=== PATIENT | female | born 1985 | race Caucasian/White ===

== ENCOUNTER 2018-12-23 12:12 | Inpatient (IN) | payer BC ==
[~2018-12-23] VITALS: Ht 160 cm; Wt 57.8 kg
[2018-12-23] VITALS (7 sets, daily range): BP systolic 124–156; BP diastolic 77–95
--- NOTE | ~2018-12-23 | EKG ---
[place], [place] ELECTROCARDIOGRAM REPORT NAME: BRITTNEY MEJIA UNIT #: [id number] ROOM: 520 DOCTOR: SERVANDO DRAFT REPORT BIRTHDATE: [address] [facility] Test Date: 2018-12-23 Test Time: 15:20:58 Pat Name: BRITTNEY MEJIA Department: Room: 520 Gender: F Glass Polisher: Farhana Christensen : 1985 Requested By: CHINEDU TOSCANO Order Number: [id number] Reading MD: Nicolas Starr MD Measurements Intervals [place] Rate: 140 P: 65 ND: 100 QRS: -32 QRSD: 120 T: 112 QT: 307 QTc: 469 Interpretive Statements Sinus tachycardia LVH with secondary repolarization abnormality Anterior infarct, acute (LAD) No previous ECG for comparison Electronically Signed On 12-23-2018 22:11:18 PST by Nicolas Starr MD CM:EKGRPT:ELECTROCARDIOGRAM REPORT [id number] CHINEDU TOSCANO EPIPHANY DRAFT REPORT CHINEDU TOSCANO
--- NOTE | ~2018-12-23 | EKG ---
[place], [place] ELECTROCARDIOGRAM REPORT NAME: BRITTNEY MEJIA UNIT #: [id number] ROOM: 520 DOCTOR: SERVANDO DRAFT REPORT BIRTHDATE: [birth year] [facility] Test Date: 2018-12-25 Test Time: 08:27:29 Pat Name: BRITTNEY MEJIA Department: Room: 520 1 Gender: F Vascular Technician: Farhana Collins : 1985 Requested By: ADRIENNE TOSCANO Order Number: [id number] Reading MD: Nicolas Starr MD Measurements Intervals [place] Rate: 84 P: 40 VT: 136 QRS: -2 QRSD: 79 T: 45 QT: 353 QTc: 418 Interpretive Statements Sinus rhythm Anterior infarct, old Compared to ECG 12/23/2018 16:09:00 Sinus tachycardia no longer present ST (T wave) deviation no longer present Myocardial infarct finding still present Electronically Signed On 12-25-2018 7:24:07 PST by Nicolas Starr MD CM:EKGRPT:ELECTROCARDIOGRAM REPORT ADRIENNE TOSCANO EPIPHANY DRAFT REPORT ADRIENNE TOSCANO
--- NOTE | ~2018-12-23 | EKG ---
[place], [place] ELECTROCARDIOGRAM REPORT NAME: BRITTNEY MEJIA UNIT #: [id number] ROOM: 520 DOCTOR: SERVANDO DRAFT REPORT BIRTHDATE: [birth year] [facility] Test Date: 2018-12-23 Test Time: 16:09:00 Pat Name: BRITTNEY MEJIA Department: Room: 520 Gender: F Oracle Sql Developer: Farhana Christensen : 1985 Requested By: CHINEDU TOSCANO Order Number: [id number] Reading MD: Nicolas Starr MD Measurements Intervals [place] Rate: 124 P: 62 AK: 133 QRS: 28 QRSD: 89 T: 77 QT: 318 QTc: 457 Interpretive Statements Sinus tachycardia Anterior infarct, old Compared to earlier ECG this date Anterior ST elevation no longer present Interventricular conduction delay is no longer present Electronically Signed On 12-23-2018 22:12:47 PST by Nicolas Starr MD CM:EKGRPT:ELECTROCARDIOGRAM REPORT [id number] CHINEDU TOSCANO EPIPHANY DRAFT REPORT CHINEDU TOSCANO
[~2018-12-23 12:12] MED LIST: ALPRAZOLAM0.5 M3 PO; MOTRIN 800 MG E4 TAB PO; NAPROSYN500 MG PO; PRENATAL1 TA1 PO; ULTRAM 50 MG ED2 TAB PO; ZITHROMAX250 MG PO; ZOFRAN4 MG PO
--- NOTE | 2018-12-23 12:42 | NUR ---
NOTIFIED BY LAB PT POSITIVE FOR FLU-A.MARCOS PLUNGER SCOOP OPERATOR NOTIFIED.
[2018-12-23 12:57] LABS: BASO % 0.3 % (0.0-1.0); EOS % 0.5 % (1.0-4.0); HEMATOCRIT 44.9 % (37.0-47.0); HEMOGLOBIN 14.6 g/dl (12.0-16.0); LYMPH # 0.4 10*3/uL (1.3-4.4); LYMPH % 7.1 % (27.0-41.0); MEAN CELL VOLUME 82.4 fl (81.0-99.0); MEAN CORPUSCULAR HGB 26.8 pg (27.0-31.0); MEAN CORPUSCULAR HGB CONC 32.5 g/dl (33.0-37.0); MONO # 0.8 10*3/uL (0.1-1.0); MONO % 12.8 % (3.0-9.0); NEUT # 4.9 10*3/uL (2.3-7.9); NEUT % 78.7 % (47.0-73.0); PLATELET COUNT AUTOMATED 259 10*3/uL (130-400); RED BLOOD COUNT 5.45 10*6/uL (4.10-5.10); RED CELL DISTRI WIDTH 13.5 % (0-14.5); WHITE BLOOD COUNT 6.2 10*3/uL (4.8-10.8)
--- NOTE | 2018-12-23 13:03 | NUR ---
NOTIFIED BY LAB PTS LACTIC ACID 2.7.MARCOS TINOCO NOTIFIED.
[2018-12-23 13:12] LABS: ALBUMIN 4.2 gm/dl (3.1-4.5); ALKALINE PHOSPHATASE 108 U/L (45-117); BUN 9 mg/dl (7-24); CHLORIDE 102 mmol/L (98-107); CREATININE 0.96 mg/dL (0.55-1.02); POTASSIUM 3.7 mmol/L (3.5-5.1); SGOT/AST 19 IU/L (3-35); SGPT/ALT 30 U/L (12-78); SODIUM 135 mmol/L (136-145); TOTAL PROTEIN 8.7 gm/dL (6.4-8.2)
--- NOTE | 2018-12-23 15:13 | NUR ---
LAB NOTIFIED US LACRIC ACID 2.3. MARCOS HISTOPATHOLOGY TECHNICIAN NOTIFIED.
[2018-12-23] MEDS ORDERED: IMITREX25 M1 PO (15:22)
--- NOTE | 2018-12-23 16:40 | NUR ---
A 33yr old female, admitted to , under the services of YAZ Rojas DO with a diagnosis of Influenza A, severe sepsis and pneumonitis. Chief complaint is chest pain, hoarse cough, chills. Patient arrived via stretcher from ER. Monitor applied. Initial assessment completed. Vital signs taken and recorded. See assessment for past medical history, medications and allergies. Patient and/or family oriented to unit. [facility] visitation policy reviewed. Clothing/patient valuable form completed. HALLIE KANG L
--- NOTE | 2018-12-23 20:46 | NUR ---
24 HR chart check completed.
--- NOTE | 2018-12-23 21:00 | NUR ---
VISITING WITH FAMILY. RESPIRATIONS EASY. LUNGS CLEAR. HARSH NON-PRODUCTIVE COUGH NOTED. OFFERED AND EDUCATED REGARDING TEDS, DECLINED. IV FLUIDS INFUSING PER ORDER. CALL LIGHT WITHIN REACH. NO VOICED COMPLAINTS
--- NOTE | 2018-12-23 22:43 | NUR ---
REQUESTED AND RECEIVED TYLENOL PER PRN ORDER FOR COMPLAINTS OF HEADACHE RATING A 5. ALSO MEDICATED WITH XANAX TO ASSIST WITH ANXIETY. CALL LIGHT WITHIN REACH. WILL MONITOR FOR EFFECTIVENESS
[2018-12-24] VITALS: BP 130/84
--- NOTE | 2018-12-24 | NUR ---
REMAINS AWAKE. CALM. RESPIRATIONS EASY. CALL LIGHT WITHIN REACH.
--- NOTE | 2018-12-24 01:08 | NUR ---
REQUESTED AND RECEIVED TORAOL PER PRN ORDER FOR COMPLAINTS OF HEADACHE RATING A 5. CALL LIGHT WITHIN REACH. WILL MONITOR FOR EFECTIVENESS
--- NOTE | 2018-12-24 06:00 | NUR ---
RESTED THROUGHOUT NIGHT WITH NO ACUTE DISTRESS NOTED. RESPIRATIONS EASY. HR 90'S WHILE SLEEPING. IV FLUIDS INFUSING PER ORDER. CALL LIGHT WITHIN REACH. NO VOICED COMPLAINTS
[2018-12-24 07:07] LABS: MEAN CELL VOLUME 83.4 fl (81.0-99.0); MEAN CORPUSCULAR HGB 26.7 pg (27.0-31.0); MEAN PLATELET VOLUME 10.4 fl (9.6-12.3); PLATELET COUNT AUTOMATED 205 10*3/uL (130-400); RED BLOOD COUNT 4.39 10*6/uL (4.10-5.10); RED CELL DISTRI WIDTH 13.6 % (0-14.5); WHITE BLOOD COUNT 3.5 10*3/uL (4.8-10.8)
[2018-12-24 07:08] LABS: HEMATOCRIT 36.6 % (37.0-47.0); HEMOGLOBIN 11.7 g/dl (12.0-16.0)
[2018-12-24 07:34] LABS: ALBUMIN 3.1 gm/dl (3.1-4.5); BUN 8 mg/dl (7-24); CHLORIDE 109 mmol/L (98-107); CHOLESTEROL 135 mg/dL (<200); CREATININE 0.74 mg/dL (0.55-1.02); PHOSPHOROUS 3.1 mg/dL (2.5-4.9); POTASSIUM 3.8 mmol/L (3.5-5.1); SGOT/AST 17 IU/L (3-35); SGPT/ALT 24 U/L (12-78); SODIUM 141 mmol/L (136-145); TOTAL PROTEIN 6.6 gm/dL (6.4-8.2)
[2018-12-24 07:41] LABS: ALKALINE PHOSPHATASE 77 U/L (45-117); FREE T4 0.83 ng/dl (0.76-1.46); HDL CHOLESTEROL 49 mg/dl (40-60); LDL CHOLESTEROL 74 mg/dL (9-159); TRIGLYCERIDES 61 mg/dl (<150); VLDL CHOLESTEROL 12 mg/dL (6-40)
[2018-12-24 07:52] LABS: VITAMIN D, 25-HYDROXY 32.1 ng/mL (30-100)
[2018-12-24 08:00] VITALS: BP 144/88
[2018-12-24 08:05] LABS: BURR CELLS FEW; PLATELET SUFFICIENCY NORMAL (NORMAL); TOTAL CELLS COUNTED 100 #CELLS
--- NOTE | 2018-12-24 08:45 | NUR ---
IV FLUIDS CHANGED FROM 125 ML/HR TO 100ML/HR PER ORDER.
--- NOTE | 2018-12-24 09:51 | NUR ---
PATIENT REQUESTING MEDICATION FOR HEADACHE AND COUGH. NORCO AND TESSALON PERLES ADMINISTERED PRESCRIBED. WILL MONITOR FOR EFFECTIVENESS.
--- NOTE | 2018-12-24 10:51 | NUR ---
PATIENT STATES THAT HEADACHE IS BETTER AT THIS TIME, NORCO EFFECTIVE. WILL CONTINUE TO MONITOR.
--- NOTE | 2018-12-24 11:11 | NUR ---
Dinkey Engineer in to talk to patient. Patient states lives at HOME with KIDS. There are GARAGE steps in the home. Physician: RAJWINDER Pharmacy: [facility] [place] [facility] services: NONE Patient's level of ADLs: INDEPENDENT Patient has working utilities: YES DME: NONE Follow-up physician's appointment after d/c: WILL BE MADE BY HOSPITALIST NURSE DIRECTOR ON DISCHARGE Does patient want to access PORTAL?: NO Discharge plan PT LIVES AT HOME WITH HER KIDS AND IS INDEPENDENT IN CARE. DENIES ANY NEEDS ON DISCHARGE. CAN BE DISCHARGED HOME WHEN MEDICALLY STABLE. WILL CONTINUE TO FOLLOW.. SHELBY HERRERA
[2018-12-24 12:00] VITALS: BP 131/88
--- NOTE | 2018-12-24 14:13 | NUR ---
Shift chart check completed.
--- NOTE | 2018-12-24 14:22 | NUR ---
PATIENT REQUESTING MEDICATION FOR ANXIETY AND PAIN AT THIS TIME. XANAX AND TORODOL ADMINISTERED PRESCRIBED. WILL MONITOR FOR EFFECTIVENESS.
--- NOTE | 2018-12-24 14:31 | NUR ---
PATIENT REQUESTING MEDICATION FOR COUGH. TESSALON PERLS ADMINISTERED PRESCRIBED. WILL MONITOR FOR EFFECTIVENESS.
--- NOTE | 2018-12-24 15:22 | NUR ---
PATIENT STATES THAT XANAX AND TORODOL WERE EFFECTIVE. WILL MONITOR.
[2018-12-24 16:00] VITALS: BP 131/75
[2018-12-24 20:00] VITALS: BP 134/94
[2018-12-25] VITALS: BP 144/98
--- NOTE | 2018-12-25 | NUR ---
TOOK OVER CARE OF PT. PT RESTING IN BED, EYES OPEN, ALERT AND PLEASANT WITH STAFF. PT STATES THAT SHE HAS NO NEW COMPLAINTS TONIGHT AND THAT SHE JUST WANTS TO GET SOME SLEEP. ASSESSMENT COMPLETE, RESPIRATIONS EASY AND UNLABORED. IV FLUIDS INFUSING WITH EASE. IV SITE PATENT, DRESSING C/D/I. WILL CONTINUE TO MONITOR. CALL LIGHT IN REACH.
[2018-12-25 06:51] LABS: BASO % 0.3 % (0.0-1.0); EOS # 0.1 10*3/uL (0.0-0.4); EOS % 2.1 % (1.0-4.0); HEMATOCRIT 37.7 % (37.0-47.0); HEMOGLOBIN 12.3 g/dl (12.0-16.0); LYMPH # 1.3 10*3/uL (1.3-4.4); LYMPH % 34.5 % (27.0-41.0); MEAN CELL VOLUME 81.4 fl (81.0-99.0); MEAN CORPUSCULAR HGB 26.6 pg (27.0-31.0); MEAN CORPUSCULAR HGB CONC 32.6 g/dl (33.0-37.0); MEAN PLATELET VOLUME 10.5 fl (9.6-12.3); MONO # 0.5 10*3/uL (0.1-1.0); MONO % 13.5 % (3.0-9.0); NEUT # 1.9 10*3/uL (2.3-7.9); NEUT % 49.3 % (47.0-73.0); PLATELET COUNT AUTOMATED 220 10*3/uL (130-400); RED BLOOD COUNT 4.63 10*6/uL (4.10-5.10); RED CELL DISTRI WIDTH 13.5 % (0-14.5); WHITE BLOOD COUNT 3.9 10*3/uL (4.8-10.8)
[2018-12-25 06:59] LABS: BUN 5 mg/dl (7-24); CHLORIDE 108 mmol/L (98-107); CREATININE 0.69 mg/dL (0.55-1.02); POTASSIUM 3.6 mmol/L (3.5-5.1); SODIUM 140 mmol/L (136-145)
--- NOTE | 2018-12-25 07:00 | NUR ---
REPORT OBTAINED FROM JEREMIE. PATIENT STATED SHE DID NOT WANT TO BE AWAKEN IN THE MORNING FOR REPORT PER PRIOR NURSE.
[2018-12-25 08:00] VITALS: BP 144/88
--- NOTE | 2018-12-25 09:12 | NUR ---
PATITENT MEDICATED W/ CEPACOL AND ROBITUSSIN FOR C/O COUGHT AND SORE THROAT. WILL MONITOR.
--- NOTE | 2018-12-25 09:23 | NUR ---
PATIENT MEDICATED WITH TORADOL FOR C/O BACK PAIN 04/09. WILL MONITOR.
--- NOTE | 2018-12-25 10:12 | NUR ---
CEPACOL AND ROBITUSSIN EFFECTIVE FOR COUGH AND SORE THROAT,.
--- NOTE | 2018-12-25 10:23 | NUR ---
TORADOL EFFECTIVE FOR BACK PAIN.
[2018-12-25 12:00] VITALS: BP 136/93
[2018-12-25] MEDS ORDERED: TAMIFLU 75MG CA75 MG PO (14:39)
[2018-12-25] MEDS ORDERED: CYCLOBENZAPRINE10 MG PO (14:39)
[2018-12-25] MEDS ORDERED: ALPRAZOLAM0.5 M3 PO (14:39)
[2018-12-25] MEDS ORDERED: MEDROL DOSEPAK4 MG PO (14:39)
--- NOTE | 2018-12-25 15:25 | NUR ---
Discharge instructions reviewed with patient/family. Patient receptive and verbalizes understanding. Follow-up care TO BE arranged BY PATIENT. Written instructions given to patIENT. IV CATH REMOVED, DRESSING APPLIED. GYN ACCOUNTED FOR AND PLACED IN BIN. JUDY COTA
== END 2018-12-25 15:25 | disposition home or self-care (01) | DRG 871 ==
LOC: ED 12:12 → EDHOLD 14:52 → 4E 15:03 → 5E 16:22 → EDHOLD 16:22 → 5E 16:26
PROVIDERS: Internal Medicine; Nurse Practitioner Family; Registered Nurse; ADMIT Internal Medicine
DX: A41.9 Sepsis, unspecified organism (principal); J10.00 Influenza due to other identified influenza virus with unspecified type of pneumonia; E87.0 Hyperosmolality and hypernatremia; R00.2 Palpitations; I44.7 Left bundle-branch block, unspecified; R65.20 Severe sepsis without septic shock; F41.9 Anxiety disorder, unspecified; R07.9 Chest pain, unspecified; I25.2 Old myocardial infarction; Z82.49 Family history of ischemic heart disease and other diseases of the circulatory system; Z79.899 Other long term (current) drug therapy; Z80.9 Family history of malignant neoplasm, unspecified; Z82.0 Family history of epilepsy and other diseases of the nervous system